=== PATIENT | male | born 1985 | race Caucasian/White ===

== ENCOUNTER 2025-01-30 20:05 | Emergency (ER) | payer SELFPAY ==
[~2025-01-30] VITALS: Ht 175.3 cm; Wt 83.9 kg
[2025-01-30] MEDS ORDERED: ATOR10TA PO (20:15)
[2025-01-30] MEDS ORDERED: CETI-90 PO (21:35)
[2025-01-30] MEDS ORDERED: FLUT16SP16 BNOSTRILS (21:35)
[2025-01-30] MEDS ORDERED: NAPR-1009 PO (21:36)
[2025-01-30 21:42] VITALS: BP 133/84; TEMP 98.8
== END 2025-01-30 21:45 | disposition home or self-care (01) ==
LOC: ER 20:05
DX: J02.9 Acute pharyngitis, unspecified (principal); B97.89 Other viral agents as the cause of diseases classified elsewhere; E78.5 Hyperlipidemia, unspecified; Z88.1 Allergy status to other antibiotic agents
CPT/HCPCS: 86403; 87070; A4606; A4663